=== PATIENT | male | born 1945 | race Caucasian/White ===

== ENCOUNTER → 2017-08-23 | Outpatient (CLI) | payer OTHER ==
[~2017-08-23] MED LIST: ASPI-555 PO; CALC-190 PO; CHOL200016 PO; FISH1CAP63 PO; GLIP5TAB11 PO; LORA1TAB3 PO; LOSA50TA37 PO; MAAL30 PO; METF10004 PO; OMEP20CA10 PO; SIMV20TA6 PO; VITA1CAP85 PO
== END | disposition home or self-care (01) ==
LOC: OIH 13:35
PROVIDERS: ATTEND Internal Medicine Cardiovascular Disease
DX: Z13.6 Encounter for screening for cardiovascular disorders (principal)
CPT/HCPCS: 75571

== ENCOUNTER 2020-07-04 12:12 | Emergency (ER) | payer MEDICARE ==
[~2020-07-04 12:12] MED LIST changes: -ASPI-555 PO; +ASPI-556 PO; -CHOL200016 PO; +CHOL200059 PO; -LOSA50TA37 PO; +LOSA50TA64 PO; +METF-446 PO; -METF10004 PO; -OMEP20CA10 PO; +OMEP20CA12 PO; +SIMV-43 PO; -SIMV20TA6 PO
[2020-07-04] MEDS ORDERED: DEXAMETHASONE SOD PHOSPHATE 4 MG/ML 1ML VIAL ONE (13:37)
[2020-07-04] MEDS ORDERED: KETOROLAC TROMETHAMINE 15MG/ML ONE (13:38)
[2020-07-04] MEDS ORDERED: LORAZEPAM 2 MG/ML 1 ML VIAL ONE (13:39)
[2020-07-04] MEDS ORDERED: HYDROMORPHONE 1 MG/1 ML AMP ONE (13:39)
== END 2020-07-04 14:53 | disposition home or self-care (01) ==
LOC: EDH 12:12
DX: M43.6 Torticollis (principal); E11.9 Type 2 diabetes mellitus without complications; I10 Essential (primary) hypertension; E78.00 Pure hypercholesterolemia, unspecified; I25.2 Old myocardial infarction; Z87.891 Personal history of nicotine dependence
CPT/HCPCS: 72125; 96372 ×4; 99284; J1100; J1170; J1885; J2060

== ENCOUNTER → 2022-04-14 | Outpatient (CLI) | payer MEDICARE ==
[~2022-04-14] MED LIST changes: +GADOTERATE MEGLUMINE 10 MMOL/20 ML VIAL IV ONE
== END | disposition home or self-care (01) ==
LOC: RAH 10:05
PROVIDERS: ATTEND Otolaryngology Plastic Surgery within the Head & Neck
DX: H90.3 Sensorineural hearing loss, bilateral (principal); J32.9 Chronic sinusitis, unspecified
CPT/HCPCS: 70553; A9575

== ENCOUNTER → 2025-03-25 | Outpatient (CLI) | payer MEDICARE ==
[~2025-03-25] MED LIST changes: +ALBUHFA IH; +BENZ-39 PO; -GADOTERATE MEGLUMINE 10 MMOL/20 ML VIAL IV ONE; -GLIP5TAB11 PO; +GLIP5TAB15 PO; +LEVO-70 PO
--- NOTE | 2025-03-25 21:28 | HMCIMG ---
STUDY: X-RAY OF THE CHEST, 2 VIEWS HISTORY: Shortness of breath. TECHNIQUE: PA and lateral views of the chest are submitted for interpretation. COMPARISON: None provided. FINDINGS: Pulmonary carballo: Lungs are clear without pulmonary infiltrates or discrete nodules. Symmetric aeration of both lungs. Mild prominence of the bronchovascular markings, which may reflect mild pulmonary vascular congestion and/or nonspecific peribronchial inflammatory change in the appropriate clinical setting. Cardiac silhouette: Cardiac silhouette is within normal limits in size and contour. Aortic arch calcification is present, in keeping with atherosclerotic change. Mediastinum and beau: Mediastinal contours and beau are within normal limits without evidence of widening or mass. Retrosternal clear space is well preserved with no focal opacity. Osseous structures: Visualized ribs, clavicles, and thoracic spine demonstrate no acute osseous abnormality. Miscellaneous: There is no pneumothorax or pleural effusion. Costophrenic angles are clear bilaterally. There is no free air seen under the diaphragms. Nerve stimulator leads are seen projecting approximately 2 cm below the level of the speedy. IMPRESSION: * Mild prominence of the bronchovascular markings, which may reflect mild pulmonary vascular congestion and/or nonspecific peribronchial inflammatory change; no focal consolidation. * Aortic arch calcification, compatible with atherosclerotic vascular disease. * Nerve stimulator leads projecting over the mid mediastinum, approximately 2 cm below the speedy. /[place]
== END | disposition home or self-care (01) ==
LOC: RAH 11:15
PROVIDERS: ATTEND Nurse Practitioner
DX: R06.02 Shortness of breath (principal); I70.0 Atherosclerosis of aorta
CPT/HCPCS: 71046